=== PATIENT | female | born 2000 | race Caucasian/White ===

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

== ENCOUNTER 2021-01-10 22:06 | Emergency (ER) | payer OTHER ==
[~2021-01-10] VITALS: Ht 167.6 cm; Wt 95.3 kg
[~2021-01-10 22:06] MED LIST changes: +IBUPROFEN 800800 M1 PO
[2021-01-10 22:35] LABS: URINE BILIRUBIN NEGATIVE (Negative); URINE BLOOD 3+ (Negative); URINE CLARITY CLEAR; URINE COLOR YELLOW; URINE GLUCOSE-RANDOM NEGATIVE (Negative); URINE KETONES NEGATIVE (Negative); URINE LEUKOCYTES-REFLEX NEGATIVE (Negative); URINE NITRITE-REFLEX NEGATIVE (Negative); URINE PROTEIN NEGATIVE (Negative); URINE SPECIFIC GRAVITY 1.025 (1.005-1.030); URINE UROBILINOGEN 0.2 E.U./dl (0.2-1.0)
[2021-01-10 23:03] LABS: CASTS None Seen /LPF (None Seen); SQUAMOUS 4-10 Moderate /LPF (0-3); URINE WBC-REFLEX 0-5 Rare /HPF (0-5)
[2021-01-10 23:04] LABS: BACTERIA-REFLEX 1-9 Few /HPF (None Seen); CRYSTALS None Seen /LPF (None Seen); URINE RBC 3-10 Few /HPF (0-2)
[2021-01-10] MEDS ORDERED: IBUPROFEN 800800 MG PO (23:18)
[2021-01-10] MEDS ORDERED: FLEXERIL PO (23:18)
[2021-01-10 23:26] VITALS: BP 120/61
== END 2021-01-10 23:26 | disposition home or self-care (01) ==
LOC: M.ERS 22:06
PROVIDERS: Family Medicine
DX: M54.6 Pain in thoracic spine (principal); M54.5 Low back pain; K21.9 Gastro-esophageal reflux disease without esophagitis; F17.210 Nicotine dependence, cigarettes, uncomplicated; Z88.6 Allergy status to analgesic agent

== ENCOUNTER 2021-03-11 15:21 | Emergency (ER) | payer OTHER ==
[~2021-03-11] VITALS: Ht 167.6 cm; Wt 104.3 kg
[~2021-03-11 15:21] MED LIST changes: +FLEXERIL PO; +IBUPROFEN 800800 MG PO
[2021-03-11 15:41] LABS: URINE BILIRUBIN NEGATIVE (Negative); URINE BLOOD NEGATIVE (Negative); URINE CLARITY CLEAR; URINE COLOR YELLOW; URINE GLUCOSE-RANDOM NEGATIVE (Negative); URINE KETONES NEGATIVE (Negative); URINE LEUKOCYTES-REFLEX NEGATIVE (Negative); URINE NITRITE-REFLEX NEGATIVE (Negative); URINE PROTEIN NEGATIVE (Negative)
[2021-03-11 16:07] LABS: HEMATOCRIT 32.7 % (37.0-47.0); HEMOGLOBIN 10.5 gm/dL (12.0-15.0); MCH 23.9 pg (26.0-34.0); MCHC 32.1 g/dL (28.0-37.0); MCV 74.5 fL (80.0-100.0); MPV 8.2 fl. (7.2-11.1); NUCLEATED RBCS 0 /100WBC; PLATELET COUNT* 230 thou/uL (150-400); RBC 4.39 mil/uL (4.20-5.00); RDW-CV 18.3 % (10.5-14.5); WBC 6.6 thou/uL (4.0-11.0)
[2021-03-11 16:07] LABS: AMP/METHAMP Negative (Negative); BARBITURATES Negative (Negative); BENZODIAZEPINES Negative (Negative); COCAINE Negative (Negative); METHADONE Negative (Negative); OPIATES Negative (Negative); PCP Negative (Negative); THC POSITIVE (Negative)
[2021-03-11 16:24] LABS: CALCIUM 8.5 mg/dL (8.5-10.1); CREATININE 0.7 mg/dL (0.6-1.3); POTASSIUM 3.7 mmol/L (3.5-5.1)
[2021-03-11 16:29] LABS: ALBUMIN 3.3 g/dL (3.4-5.0); TOTAL BILIRUBIN 0.5 mg/dL (<0.1-1.0)
[2021-03-11 16:45] LABS: ABSOLUTE EOSINOPHILS 0.1 thou/uL (0.0-0.7); ABSOLUTE LYMPHOCYTES 1.7 thou/uL (0.8-5.3); ABSOLUTE MONOCYTES 0.5 thou/uL (0.0-1.2); ABSOLUTE NEUTROPHILS 4.2 thou/uL (1.6-8.1)
[2021-03-11 16:46] LABS: ANISOCYTOSIS 1+; MICROCYTES 1+; PLATELET ESTIMATE ADEQUATE
[2021-03-11] MEDS ORDERED: ONDANSETRON ODT4 MG PO (20:07)
[2021-03-11] MEDS ORDERED: NAPROSYN500 MG PO (20:07)
[2021-03-11 20:11] VITALS: BP 127/75
--- NOTE | 2021-03-13 09:47 | EKG ---
[place] [address] ELECTROCARDIOGRAM REPORT Name: JUVE BOURNE Room: [facility]#: [id number] Admission: 03/11/21 Attend Phys: Discharge: 03/11/21 Date of : 2 Date of Service: 03/11/21 1647 Report #: [id number] THIS REPORT FOR: //name// [facility] ED Test Date: 2021-03-11 Test Time: 16:47:57 Pat Name: JUVE LY Department: Room: Gender: F In[place]: : 2000 Requested By: Carson Rojas Order Number: [id number] MD: Ramy Cao Measurements Intervals [place] Rate: 56 P: 16 ND: 137 QRS: 14 QRSD: 97 T: 15 QT: 407 QTc: 393 Interpretive Statements Sinus rhythm No previous ECG available for comparison Electronically Signed On 03-13-2021 9:47:09 CDT by Ramy Cao [email or web address] <ELECTRONICALLY SIGNED> By: Ramy Cao MD, [facility] 03/13/21 0947 46 Ramy Cao MD, [facility] /EPI
== END 2021-03-11 20:11 | disposition home or self-care (01) ==
LOC: M.ERS 15:21
PROVIDERS: Family Medicine; Physician Assistant
DX: N83.202 Unspecified ovarian cyst, left side (principal); R11.2 Nausea with vomiting, unspecified; K21.9 Gastro-esophageal reflux disease without esophagitis; F17.210 Nicotine dependence, cigarettes, uncomplicated; Z88.6 Allergy status to analgesic agent; Z79.899 Other long term (current) drug therapy

== ENCOUNTER 2021-12-31 22:10 | Emergency (ER) | payer OTHER ==
[~2021-12-31] VITALS: Ht 167.6 cm; Wt 113.4 kg
[~2021-12-31 22:10] MED LIST changes: +NAPROSYN500 MG PO; +ONDANSETRON ODT4 MG PO
[2021-12-31] MEDS ORDERED: BACLOFEN 10MG T10 MG PO (22:58)
[2021-12-31 23:15] VITALS: BP 135/70
== END 2021-12-31 23:15 | disposition home or self-care (01) ==
LOC: M.ERS 22:10
DX: M53.3 Sacrococcygeal disorders, not elsewhere classified (principal); K21.9 Gastro-esophageal reflux disease without esophagitis; F17.210 Nicotine dependence, cigarettes, uncomplicated; Z88.8 Allergy status to other drugs, medicaments and biological substances